=== PATIENT | female | born 1975 | race African-American/Black ===

== ENCOUNTER 2018-07-07 10:04 | Emergency (ER) | payer BC ==
[~2018-07-07] VITALS: Ht 170.2 cm; Wt 76.7 kg
--- OUTSIDE RECORDS SUMMARY | 2018-07-07 10:08 | XMS REPORT | Summary of Care ---
Author Author [facility] Primary Care [facility] Organization [facility] Address Unknown Phone Unavailable Encounter DIGNA Siddiquirlisset(FIN) [id number] Date(s): 08/17/17 - 08/17/17 [facility] [address] [facility], [address] [place], [place] [address]- [phone] Attending Physician: Jluis Hinkle MD Vital Signs No data available for this section Problem List Condition Effective Dates Status Health Status Informant Abdominal 09/06/07 Resolved Plasty(Confirmed)1 Gastroesophageal 11/19/12 Active reflux disease2 Leukorrhea3 04/10/14 Active Lumbar 11/25/12 Active radiculopathy4 Migraine(Confirmed) Resolved Migraine5 11/19/12 Active Mixed anxiety and 01/09/13 Active depressive disorder6 Obesity(Confirmed) Active Pain in lower limb7 11/19/12 Resolved Premenopausal 04/10/14 Active menorrhagia8 1abdominal plasty 2Data migrated from [employer] on 01/02/15. 3Data migrated from [employer] on 01/02/15. 4Data migrated from [employer] on 01/02/15. 5Data migrated from [employer] on 01/02/15. 6Data migrated from [employer] on 01/02/15. 7Data migrated from [employer] on 01/02/15. 8Data migrated from [employer] on 01/02/15. Allergies, Adverse Reactions, Alerts Substance Reaction Severity Status Cleocin T Active Medications No data available for this section Results No data available for this section Immunizations Given and Recorded Vaccine Date Status Refusal Reason influenza virus vaccine, inactivated1 04/10/14 Given 1Result Comment: fluzone preservative free (>3 yrs.) [[id number]]. Migrated from OBS ; Data migrated from [employer] on 09/06/2015. Procedures Procedure Date Related Diagnosis Body Site Status Abdominal plasty Completed Hiatus hernia repair Completed Social History Social History Type Response Alcohol 1 Smoking Status Never smoker; Exposure to Tobacco Smoke None; Cigarette Smoking Last 365 Days No; Reg Smoking Cessation Counseling No entered on: 12/26/16 1Social drinker Assessment and Plan No data available for this section
--- OUTSIDE RECORDS SUMMARY | 2018-07-07 10:08 | XMS REPORT | Summary of Care ---
Author Author [facility] Organization [facility] Address Unknown Phone Unavailable Encounter HQ Medina(BREANNE) [id number] Date(s): 12/25/16 - 12/25/16 [facility] [address] [place] [address]- [facility] [phone] Discharge Diagnosis: Acute headache Discharge Disposition: Home or Self Care Attending Physician: Alonzo Mirza MD Vital Signs Most recent to 1 2 oldest [Reference Range]: Temperature Oral 98.5 DegF 98.4 DegF [96.4-99.1 DegF] (12/25/16 4:43 AM) (12/25/16 3:40 AM) Blood Pressure 127/68 mmHg 131/90 mmHg [90-140/60-90 mmHg] (12/25/16 4:43 AM) (12/25/16 3:40 AM) Respiratory Rate 17 BRMIN 18 BRMIN [14-20 BRMIN] (12/25/16 4:43 AM) (12/25/16 3:40 AM) Peripheral Pulse 77 bpm 84 bpm Rate [60-100 bpm] (12/25/16 4:43 AM) (12/25/16 3:40 AM) Weight 77.273 kg (12/25/16 3:40 AM) Problem List Condition Effective Dates Status Health [...] Reaction Severity Status Cleocin T Active Medications Ativan 1 mg, 1 tab, Route: PO, Drug form: TAB, ONCE, Dosing Weight 77.273, kg, Priority : STAT, Start date: 12/25/16 4:29:00 CDT, Stop date: 12/25/16 4:29:00 CDT Notes: (Same as: Ativan) Start Date: 12/25/16 Stop Date: 12/25/16 Status: Completed ketOROLAC 30 mg, 1 mL, Route: IM, Drug form: INJ, ONCE, Dosing Weight 77.273, kg, Priority : STAT, Start date: 12/25/16 4:29:00 CDT, Stop date: 12/25/16 4:29:00 CDT Notes: (Same as:Toradol) IV bolus must be given >15 seconds. Give IM administration slowly and deeply into the muscle.Not for use > 4 days MEDICATION WASTE Product Size: 30 mgProduct Wasted: ___ mg Start Date: 12/25/16 Stop Date: 12/25/16 Status: Completed Results No data available for this section Immunizations Given and Recorded Vaccine Date Status Refusal Reason influenza virus vaccine, inactivated1 04/10/14 Given 1Result Comment: fluzone preservative free (>3 yrs.) [[id number]]. Migrated from OBS ; Data migrated from [employer] on 09/06/2015. Procedures Procedure Date Related Diagnosis Body Site Abdominal plasty Hiatus hernia repair Social History Social History Type Response Alcohol 1 Smoking Status Never smoker; Exposure to Tobacco Smoke None; Cigarette Smoking Last 365 Days No; Reg Smoking Cessation Counseling No 1Social drinker Assessment and Plan No data available for this section
--- OUTSIDE RECORDS SUMMARY | 2018-07-07 10:08 | XMS REPORT | Summary of Care ---
Author Author [facility] Primary Care [facility] Organization [facility] Address Unknown Phone Unavailable Encounter DIGNA Haney(BREANNE) [id number] Date(s): 06/19/17 - 06/20/17 [facility] [address] [facility], [address] [place] [address]- [phone] Vital Signs No data available for this [...] Reaction Severity Status Cleocin T Active Medications Ambien 10 mg oral tablet 10 mg=1 tab, PO, Bedtime, PRN for sleep, # 30 tab, 2 Refill(s) Start Date: 06/19/17 Status: Ordered Results No data available for this section Immunizations Given and Recorded Vaccine Date Status Refusal Reason influenza virus vaccine, inactivated1 04/10/14 Given 1Result Comment: fluzone preservative free (>3 yrs.) [[id number]]. Migrated from OBS ; Data migrated from [employer] on 09/06/2015. Procedures Procedure Date Related Diagnosis Body Site Abdominal plasty Hiatus hernia repair Social History Social History Type Response Alcohol 1 Smoking Status Never smoker; Exposure to Tobacco Smoke None; Cigarette Smoking Last 365 Days No; Reg Smoking Cessation Counseling No 1Social drinker Assessment and Plan No data available for this section
--- OUTSIDE RECORDS SUMMARY | 2018-07-07 10:08 | XMS REPORT | Summary of Care ---
Author Author [facility] Primary [facility] Organization [facility] Address Unknown Phone Unavailable Encounter DIGNA Siddiquirlisset(FIN) [id number] Date(s): 08/17/17 - 08/17/17 [facility] [address] [address] [facility], [address] [place], [place] [address]- [phone] Attending Physician: Jluis Hinkle MD Vital Signs [...] 1Result Comment: fluzone preservative free (>3 yrs.) [[id number]]. Migrated from OBS ; Data migrated from [...]
--- OUTSIDE RECORDS SUMMARY | 2018-07-07 10:08 | XMS REPORT | Summary of Care ---
Author Author [facility] Primary Care [facility] Organization [facility] Address Unknown Phone Unavailable Encounter HQ Chenr_sangeetha(FIN) [id number] Date(s): 08/23/17 - 08/24/17 [facility] [address] [facility], [address] [place], [place] [address]- [phone] Vital Signs No data available for this [...] Reaction Severity Status Cleocin T Active Medications butorphanol 10 mg/mL nasal spray =1 spray, NASAL, Daily, PRN Severe headache, X 14 day, # 1 ea, 2 Refill(s) Start Date: 08/23/17 Stop Date: 10/04/17 Status: Completed Results No data available for this section Immunizations Given and Recorded Vaccine Date Status Refusal Reason influenza virus vaccine, inactivated1 04/10/14 Given 1Result Comment: fluzone preservative free (>3 yrs.) [[id number]]. Migrated from [facility] ; Data migrated from [email or web address] on 09/06/2015. Procedures Procedure Date Related Diagnosis [...]
--- OUTSIDE RECORDS SUMMARY | 2018-07-07 10:08 | XMS REPORT | Continuity of Care Document ---
Author Author [facility] Organization Interface Address Unknown Phone Unavailable Problems Problem Status Onset Date Classification Date Reported Comments Source Discharge Diagnosis: Acute headache 12/25/2016 12/28/2016 [facility] HEAD ACHE Active 12/25/2016 [facility] Leukorrhea<sup>3</sup> Active 04/10/2014 Problem 12/10/2017 Data migrated from [employer] on 01/02/15. [facility] Premenopausal menorrhagia<sup>8</sup> Active 04/10/2014 Problem 12/10/2017 Data migrated from [employer] on 01/02/15. Medical [facility] Mixed anxiety and depressive disorder<sup>6</sup> Active 01/09/2013 Problem 12/10/2017 Data migrated from [employer] on 01/02/15. Medical [facility] Lumbar radiculopathy<sup>4</sup> Active 11/25/2012 Problem 12/10/2017 Data migrated from [employer] on 01/02/15. [facility] Gastroesophageal reflux disease<sup>2</sup> Active 11/19/2012 Problem 12/10/2017 Data migrated from [employer] on 01/02/15. Medical [facility] Migraine<sup>5</sup> Active 11/19/2012 Problem 12/10/2017 Data migrated from [employer] on 01/02/15. Medical [facility] Pain in lower limb<sup>7</sup> Resolved 11/19/2012 Problem 12/10/2017 Data migrated from [employer] on 01/02/15. Medical [facility] Abdominal Plasty<sup>1</sup> Resolved 09/06/2007 Problem 12/10/2017 abdominal plasty [facility] Migraine Resolved Problem 12/10/2017 [facility] Obesity Active Problem 12/10/2017 [facility] Medications Medication Details Route Status Patient Instructions Ordering Provider Order Date Source butorphanol 10 mg/mL nasal spray =1 spray, NASAL, Daily, PRN Severe headache, X 14 day, # 1 ea, 2 Refill(s) No Longer Active 08/23/2017 [facility] Zolpidem tartrate 10 MG Oral Tablet [Ambien] 10 mg=1 tab, PO, Bedtime, PRN for sleep, # 30 tab, 2 Refill(s) Active 06/19/2017 [facility] rizatriptan 10 MG Disintegrating Tablet [Maxalt] 10 mg=1 tab, PO, Daily, PRN for migraine headache, # 18 tab, 2 Refill(s), Pharmacy: [facility] Pharmacy [address] Active 06/16/2017 [facility] Ativan 1 mg, 1 tab, Route: PO, Drug form: TAB, ONCE, Dosing Weight 77.273, kg, Priority: STAT, Start date: 12/25/16 4:29:00 CDT, Stop date: 12/25/16 4:29:00 CDTNotes: (Same as: Ativan) Inactive 12/25/2016 [facility] Ketorolac 30 mg, 1 mL, Route: IM, Drug form: INJ, ONCE, Dosing Weight 77.273, kg, Priority: STAT, Start date: 12/25/16 4:29:00 CDT, Stop date: 12/25/16 4:29:00 CDTNotes: (Same as:Toradol) IV bolus must be given > 15 seconds. Give IM administration slowly and deeply into the muscle. Not for use > 4 days MEDICATION WASTE Product Size: 30 mg Product Wasted: ___ mg Inactive 12/25/2016 [facility] Allergies, Adverse Reactions, Alerts Substance Category Reaction Severity Reaction type Status Date Reported Comments Source Cleocin T Assertion Drug allergy Active Medical [facility] Immunizations Immunization Date Given Site Status Last Updated Comments Source influenza virus vaccine, inactivated<sup>1</sup> 04/10/2014 completed GE Result Comment: fluzone preservative free (>3 yrs.) [[id number]]. Migrated from OBS ; Data migrated from [employer] on 09/06/2015. [facility] Results Order Name Results Value Reference Range Date Interpretation Comments Source Vital Signs Vital Sign Value Date Comments Source Heart Rate 77 12/25/2016 [facility] Systolic (mm Hg) 127 12/25/2016 [facility] Diastolic (mm Hg) 68 12/25/2016 [facility] Respitory Rate 17 12/25/2016 [facility] Temperature Oral (F) 98.5 F 12/25/2016 [facility] Temperature Oral (F) 98.4 F 12/25/2016 [facility] Respitory Rate 18 12/25/2016 [facility] Weight 77.273 12/25/2016 [facility] Heart Rate 84 12/25/2016 [facility] Systolic (mm Hg) 131 12/25/2016 [facility] Diastolic (mm Hg) 90 12/25/2016 [facility] Encounters Location Location Details Encounter Type Encounter Number Reason For Visit Attending Provider ADM Date DC Date Status Source Outpatient [id number] STEVE CALLEJAS 02/25/2015 Active [facility] [id number] [facility]2015 Active [facility] Outpatient [id number] GAMALIEL CAIN 09/09/2015 Active [facility] Outpatient [id number] [facility] BRIAN 03/10/2016 Active [facility] Outpatient [id number] JLUIS PAK 07/19/[address] [facility] Emergency [id number] Alonzo Alvarezyasmine Butt 12/25/2016 12/25/2016 [facility] Outpatient [id number] JLUIS PAK 12/26/2016 Active [facility] Outpatient [id number] ROE BIRMINGHAM 02/22/2017 Active [facility] Phone Message [id number] 06/15/2017 06/17/2017 [facility] Phone Message [id number] 06/19/2017 06/21/2017 [facility] Outpatient [id number] JLUIS PAK 08/17/2017 Active [facility] Ambulatory Pre-Reg [id number] Jluis Pak 08/17/2017 08/17/2017 [facility] Phone Message [id number] 08/23/2017 08/25/2017 [facility] Outpatient [id number] JLUIS PAK 09/03/2017 [facility] Ambulatory Pre-Reg [id number] Jluis Pak 09/03/2017 09/03/2017 [facility] Outpatient [id number] ARELY MARTINEZ 06/20/2018 [facility] Outpatient [id number] [facility] 08/08/2018 [facility] Procedures Procedure Code Date Perfomer Comments Source Abdominal plasty [id number] [facility] Hiatus hernia repair [id number] [facility] Abdominal plasty [id number] [facility] Hiatus hernia repair [id number] [facility]
--- OUTSIDE RECORDS SUMMARY | 2018-07-07 10:08 | XMS REPORT | Summary of Care ---
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 Migrated from [facility] ; Data migrated from [employer] on 09/06/2015. Procedures Procedure Date Related Diagnosis Body Site Abdominal plasty Hiatus hernia repair Social History Social History Type Response Alcohol 1 Smoking Status Never smoker; Exposure to Tobacco Smoke None; Cigarette Smoking Last 365 Days No; Reg Smoking Cessation Counseling No 1Social drinker Assessment and Plan No data available for this section
--- OUTSIDE RECORDS SUMMARY | 2018-07-07 10:08 | XMS REPORT | Summary of Care ---
Author Author [facility] Primary Care [facility] Organization [facility] Address Unknown Phone Unavailable Encounter HQ Chenr_sangeetha(FIN) [id number] Date(s): 09/03/17 - 09/03/17 [facility] [address] [facility], [address] [place], [place] [address]- [phone] Attending Physician: Jluis Hinkle MD Vital Signs [...] 1Result Comment: fluzone preservative free (>3 yrs.) [[id number]]. Migrated from OBS ; Data migrated from [...]
[2018-07-07] MEDS ORDERED: SUMATRIPTAN SUCCINATE 6 MG/0.5 ML VIAL SC ONE (10:30)
[2018-07-07] MEDS ORDERED: PROMETHAZINE HCL (IM) 25 MG/ML VIAL IM ONE (10:30)
[2018-07-07 11:23] VITALS: BP 121/93
== END 2018-07-07 11:34 | disposition home or self-care (01) ==
LOC: FSED 10:04
DX: G43.909 Migraine, unspecified, not intractable, without status migrainosus (principal)
CPT/HCPCS: 99282; J2550; J3030